=== PATIENT | male | born 1950 | race Caucasian/White ===

== ENCOUNTER → 2019-05-07 | Outpatient (CLI) | payer MEDICARE, MEDICAID ==
[2014-06-09 10:33] VITALS: BP 93/58
[~2019-05-07] MED LIST: ASPI325T8 PO; ATEN-56 PO; ATEN25TA PO; Aspirin PO; CLOP75TA57 PO; Hydrocodone/Acetaminophen PO; MULT-208 PO; PRAV20TA PO; REGADENOSON 0.4 MG/5 ML DISP.SYRIN. IV ONE
--- NOTE | 2019-05-07 13:11 | RAD ---
MR#: [id number] Date of Study: 05/07/2019 Ordering Physician: WANDA MOTTA Referring Physician: IZZY JONES Tech: RT Ventura Esqueda) (N) APPROVED REPORT Test Type: Pharmacological Stress Nurse/Tech: Stacy Khan RN Test Indications: CAD, 2 stents 4 years ago Cardiac History: Family history Medications: See Electronic Medical Record Medical History: See Electronic Medical Record Resting ECG: SR Resting Heart Rate: 68 bpm Resting Blood Pressure: 123/72mmHg Pretest Chest Pain: No chest pain Nurse/Tech Notes S1,S2 and lungs clear to auscultation. Consent: The procedure was explained to the patient in lay terms. Informed consent was witnessed. Micah eout was entered into [employer]. History and Stress Test performed by RT Dheeraj (Gabi) (N) Pharm. Details Pharmacologic stress testing was performed using 0.4mg per 5ml of regadenoson given intravenously ove r 7-10 seconds. Stress Symptoms Dizziness POST EXERCISE Reason for Termination: Infusion complete Target HR: No Max HR: 88 bpm Max Blood Pressure: 118/54mmHg Blood Pressure response to exercise: Normal blood pressure response during stress. Heart Rate response to exercise: WNL Chest Pain: No. Arrhythmia: No. ST Change: No. INTERPRETATION Stress EKG Conclusion: Negative for ischemia Imaging Protocol IMAGE PROTOCOL: Rest Tc-99m/stress Tc-99m 1 day Rest: Stress: Viability: Radiopharm.Tc99m BgkszpkveCo88e Sestamibi Cuyv74lIj 32mCi Duration 15min. 15min. Img Date 05/07/2019 05/07/2019 Inj-Img Prxa10apl. 60min. Rest Admin Site:IV - Right AntecubitalAdministrator:RT Ventura Esqueda)(N) Stress Admin Site: IV - Right AntecubitalAdministrator: RT Dheeraj (Gabi)(N) STRESS DATA End Diast. Vol.84.0mlLVEDV index BSA49.0ml End Syst. Vol.19.0mlLVESV index BSA11.0ml Myocardial Oygo257.0gEject. Oivxpzer05.0% Stress Scores Regional WT0.00Summed WT0.00 Regional WM0.00Summed WM0.00 The rest and stress images show normal perfusion, normal contraction and thickening. LV Perf. Quant 17 Seg. SSS0.00 17 Seg. SRS2.00 17 Seg. SDS0.00 Stress Defect Extent (% LAD)0.00Rest Defect Extent (% LAD)2.50Rev. Defect Extent (% LAD)0.00 Stress Defect Extent (% LCX) 0.00Rest Defect Extent (% LCX)0.00Rev. Defect Extent (% LCX)0.00 Stress Defect Extent (% RCA)0.00Rest Defect Extent (% RCA)0.00Rev. Defect Extent (% RCA)0.00 Stress Defect Extent (% RAMY)0.00Rest Defect Extent (% RAMY)0.90Rev. Defect Extent (% RAMY)0.00 Other Information Quality:Good Risk Assessment: Low Risk Conclusion 1. No evidence of EKG changes with stress testing. 2. Normal perfusion at stress/rest. 3. Low risk study. 4. EF > 60%. Signed by : Garret Mcgill, Electronically Approved : 05/07/2019 13:10:24
== END | disposition home or self-care (01) ==
LOC: NM 09:36
PROVIDERS: ATTEND Internal Medicine Cardiovascular Disease
DX: I25.10 Atherosclerotic heart disease of native coronary artery without angina pectoris (principal); Z95.5 Presence of coronary angioplasty implant and graft
CPT/HCPCS: 78452; 93017; A9500; J2785

== ENCOUNTER → 2019-05-09 | Outpatient (CLI) | payer MEDICARE, MEDICAID ==
[2014-06-09 10:33] VITALS: BP 93/58
[~2019-05-09] MED LIST changes: -REGADENOSON 0.4 MG/5 ML DISP.SYRIN. IV ONE
--- NOTE | 2019-05-09 14:59 | CARD ---
MR#: [id number] Date of Study: 05/09/2019 Ordering Physician: WANDA MOTTA, Referring Physician: WANDA MOTTA Tech: Shirley Peterson RDCS APPROVED REPORT EXAM: Two-dimensional and M-mode echocardiogram with Doppler and color Doppler. Other Information Quality : Good INDICATION Cardiac Disease: CAD 2D DIMENSIONS RVDd2.5 (2.9-3.5cm)Left Atrium(2D)3.0 (1.6-4.0cm) IVSd0.9 (0.7-1.1cm)Aortic Root(2D)2.7 (2.0-3.7cm) LVDd5.1 (3.9-5.9cm)LVOT Diameter2.2 (1.8-2.4cm) PWd0.7 (0.7-1.1cm)LVDs3.4 (2.5-4.0cm) FS (%) 30.0 %SV76.8 ml LVEF(%)60.0 (>50%) Aortic Valve AoV Peak Say.125.9cm/sAoV VTI25.0cm AO Peak GR.6.3mmHgLVOT Peak Say.105.8cm/s AO Mean GR.3mmHgAVA (VMAX)3.15cm2 ROSSANA (VTI)3.28qy6FK P 1/2 Qdfe360no Mitral Valve MV E Fnqbooad29.3cm/sMV DECEL DGNI93hr MV A Naphnluk48.3cm/sE/A Ratio0.8 Tricuspid Valve TR P. Yqlggfuk037jg/sRAP PPKUNBKY7wlXo TR Peak Gr.69tfQyDNHZ42baPw Pulmonary Vein S1 Yoslihwt90.3cm/sD2 Wdgkopsf18.7cm/s LEFT VENTRICLE The left ventricle is normal size. There is normal left ventricular wall thickness. The left ventricu lar systolic function is normal and the ejection fraction is within normal range. The Ejection Fracti on is 55-60%. There is normal LV segmental wall motion. Transmitral Doppler flow pattern is Grade I-a bnormal relaxation pattern. RIGHT VENTRICLE The right ventricle is normal size. The right ventricular systolic function is normal. ATRIA The left atrium size is normal. The right atrium size is normal. The interatrial septum is intact wit h no evidence for an atrial septal defect or patent foramen ovale as noted on 2-D or Doppler imaging. AORTIC VALVE The aortic valve is calcified but opens well. Doppler and Color Flow revealed mild aortic regurgitati on. There is no significant aortic valvular stenosis. MITRAL VALVE The mitral valve is calcified but opens well. There is no evidence of mitral valve prolapse. There is no mitral valve stenosis. Doppler and Color-flow revealed trace to mild mitral regurgitation. TRICUSPID VALVE The tricuspid valve is normal in structure and function. Doppler and Color Flow revealed trace tricus pid regurgitation. The PA pressure was estimated at 28 mmHg. There is no tricuspid valve stenosis. PULMONIC VALVE The pulmonic valve is not well visualized. Doppler and Color Flow revealed mild pulmonic valvular reg urgitation. There is no pulmonic valvular stenosis. GREAT VESSELS The aortic root is normal in size. The ascending aorta is normal in size. The IVC is normal in size a nd collapses >50% with inspiration. PERICARDIAL EFFUSION There is no evidence of significant pericardial effusion. Critical Notification Critical Value: No <Conclusion> The left ventricle is normal size. The left ventricular systolic function is normal and the ejection fraction is within normal range. The Ejection Fraction is 55-60%. There is no significant aortic valvular stenosis. Doppler and Color Flow revealed mild aortic regurgitation. Doppler and Color-flow revealed trace to mild mitral regurgitation. Doppler and Color Flow revealed trace tricuspid regurgitation. The PA pressure was estimated at 28 mmHg. Signed by : Alonso Miller MD Electronically Approved : 05/09/2019 14:58:29
== END | disposition home or self-care (01) ==
LOC: ECHO 09:04
PROVIDERS: ATTEND Internal Medicine Cardiovascular Disease
DX: I08.8 Other rheumatic multiple valve diseases (principal); I25.10 Atherosclerotic heart disease of native coronary artery without angina pectoris
CPT/HCPCS: 93306

== ENCOUNTER → 2020-03-10 | Outpatient (CLI) | payer MEDICARE, MEDICAID ==
[2014-06-09 10:33] VITALS: BP 93/58
[2020-03-10 10:54] LABS: CHOLESTEROL/HDL RATIO 1.6
== END | disposition home or self-care (01) ==
LOC: LAB 10:08
PROVIDERS: ATTEND Internal Medicine Cardiovascular Disease
DX: I25.10 Atherosclerotic heart disease of native coronary artery without angina pectoris (principal)
CPT/HCPCS: 36415; 80061

== ENCOUNTER → 2020-09-02 | Outpatient (CLI) | payer MEDICARE, MEDICAID ==
[2014-06-09 10:33] VITALS: BP 93/58
--- NOTE | 2020-09-02 16:05 | CARD ---
MR#: [id number] Date of Study: 09/02/2020 Ordering Physician: WANDA JACK, Referring Physician: WANDA JACK, Tech: Kandice Khan PATRICK APPROVED REPORT EXAM: Two-dimensional and M-mode echocardiogram with Doppler and color Doppler. Other Information Quality : GoodHR: 66bpm Rhythm : NSR INDICATION CAD, stents. 2D DIMENSIONS RVDd3.5 (2.9-3.5cm)IVSd1.0 (0.7-1.1cm) Aortic Root(2D)3.5 (2.0-3.7cm)LVDd3.9 (3.9-5.9cm) LVOT Diameter2.0 (1.8-2.4cm)PWd0.9 (0.7-1.1cm) LVDs2.6 (2.5-4.0cm)FS (%) 31.7 % SV39.2 mlLVEF(%)60.4 (>50%) Aortic Valve AoV Peak Say.128.4cm/Adriana Peak GR.6.6mmHg LVOT Peak Say.105.4cm/sAVA (VMAX)2.70cm2 AI P 1/2 Bhkb737qp Mitral Valve MV E Ojrrxjex04.5cm/sMV DECEL FABT932za MV A Skysjecl08.2cm/sE/A Ratio0.8 MV A Tdipwjbr546ql Tricuspid Valve TR P. Ydoqzgto966fw/sRAP JJYJECRW9itTr TR Peak Gr.35koJrNZDL65mjGb Pulmonary Vein S1 Jnxxanve37.5cm/sD2 Sdnrlbzp97.3cm/s PVa ssdtuamr96ifiu LEFT VENTRICLE The left ventricle is normal size. There is normal left ventricular wall thickness. Left ventricle sy stolic function is normal. The Ejection Fraction is 55-60%. There is normal LV segmental wall motion. Transmitral Doppler flow pattern is Grade I-abnormal relaxation pattern. RIGHT VENTRICLE The right ventricle is normal size. The right ventricular systolic function is normal. ATRIA The left atrium size is normal. The right atrium size is normal. The interatrial septum is intact wit h no evidence for an atrial septal defect or patent foramen ovale as noted on 2-D or Doppler imaging. AORTIC VALVE The aortic valve is moderately calcified. Doppler and Color Flow revealed mild to moderate aortic reg urgitation. There is no significant aortic valvular stenosis. MITRAL VALVE The mitral valve is normal in structure and function. There is no mitral valve stenosis. Doppler and Color-flow revealed trace mitral regurgitation. TRICUSPID VALVE The tricuspid valve is normal in structure and function. Doppler and Color Flow revealed trace tricus pid regurgitation. The PA pressure was estimated at 20 mmHg. PULMONIC VALVE The pulmonary valve is normal in structure and function. Doppler and Color Flow revealed trace pulmon ic valvular regurgitation. GREAT VESSELS The aortic root is normal in size. The ascending aorta is normal in size. PERICARDIAL EFFUSION There is no evidence of significant pericardial effusion. Critical Notification Critical Value: No <Conclusion> Left ventricle systolic function is normal. The Ejection Fraction is 55-60%. There is normal LV segmental wall motion. Transmitral Doppler flow pattern is Grade I-abnormal relaxation pattern. Mild to moderate aortic regurgitation. Trace mitral regurgitation. Trace tricuspid regurgitation. The PA pressure was estimated at 20 mmHg. There is no evidence of significant pericardial effusion. Signed by : Wanda Jack, Electronically Approved : 09/02/2020 16:05:04
--- NOTE | 2020-09-02 17:17 | RAD ---
MR#: [id number] Date of Study: 09/02/2020 Ordering Physician: WANDA MOTTA, Referring Physician: WANDA MOTTA, Tech: Jagdish Kaye MBA, RDMS, RVT, RDCS, RTR APPROVED REPORT Patient Location: OUT-PATIENT Laterality:Bilateral Indications Bruit CAD Doppler Spectral Velocity Analysis Right Left pCCA 107/26 cm/spCCA 116/23 cm/s mCCA 101/24 cm/smCCA 109/24 cm/s dCCA 117/27 cm/sdCCA 108/22 cm/s Bulb 99/24 cm/sBulb 123/27 cm/s ECA 100/ cm/sECA 102/ cm/s pICA 68/21 cm/spICA 79/27 cm/s Yolanda 84/28 cm/smICA 69/22 cm/s dICA 69/23 cm/sdICA 70/27 cm/s Vert. 76/ cm/sVert. 50/ cm/s Subcl. 83/ cm/sSubcl. 111/ cm/s ICA/CCA 0.72ICA/CCA 0.68 Findings Grayscale images of the bilateral common carotid, internal and external carotid vessels demonstrates mild to moderate intimal hyperplasia with mild diffuse atherosclerotic plaque The bilateral internal carotid vessels demonstrate overall 0 to less than 50% stenosis based on veloc ity criteria and spectral waveforms. Bilateral external carotid arteries are grossly unremarkable with overall 0 to less than 50% stenosis based on velocity criteria. Bilateral vertebral velocities are antegrade with normal velocities. Bilateral ICA to CCA ratios are within normal limits Critical Notification Critical Value: No <Conclusion> No significant carotid arterial disease bilaterally Signed by : Garret Mcgill, Electronically Approved : 09/02/2020 17:16:56
== END ==
LOC: US 13:59
PROVIDERS: ATTEND Internal Medicine Cardiovascular Disease
DX: I35.1 Nonrheumatic aortic (valve) insufficiency (principal); I65.23 Occlusion and stenosis of bilateral carotid arteries; I25.10 Atherosclerotic heart disease of native coronary artery without angina pectoris
CPT/HCPCS: 93306; 93880

== ENCOUNTER 2021-03-27 08:38 | Outpatient (CLI) | payer MEDICARE, MEDICAID ==
[~2021-03-27] VITALS: Ht 160 cm; Wt 59.0 kg
[2021-03-27] VITALS (12 sets, daily range): BP systolic 127–147; BP diastolic 68–85
[2021-03-27] MEDS ORDERED: EVOL140P3 SQ (09:02)
[2021-03-27 09:09] LABS: HEMATOCRIT 41.6 % (39.0-53.0); HEMOGLOBIN 13.9 g/dL (13.0-17.5); RED BLOOD COUNT 4.51 x10^6/uL (4.30-5.70); RED CELL DISTRIBUTION WIDTH 14.8 % (11.5-14.5); WHITE BLOOD COUNT 6.2 x10^3/uL (4.0-11.0)
[2021-03-27 09:21] LABS: CALCIUM 8.8 mg/dL (8.5-10.1); CREATININE 0.9 mg/dL (0.7-1.3); GFR 82.7; POTASSIUM 4.2 mmol/L (3.5-5.1)
[2021-03-27] MEDS ORDERED: IODIXANOL 320 MG/ML 100 ML VIAL. ONE ×2 (09:35→10:46)
[2021-03-27] MEDS ORDERED: HEPARIN for IV BOLUS 10,000 UNIT/10 ML VIAL. ONE (09:37)
[2021-03-27] MEDS ORDERED: MIDAZOLAM HCL/PF 2 MG/2 ML VIAL. ONE (09:38)
[2021-03-27] MEDS ORDERED: NITROGLYCERIN 200 MCG/2 ML SYRINGE FOR CATH/VASC LAB. ONE (09:38)
[2021-03-27] MEDS ORDERED: fentaNYL PF VIAL 100 MCG/2 ML VIAL ONE (09:38)
[2021-03-27] MEDS ORDERED: VERAPAMIL 5 MG/2 ML VIAL. ONE (09:38)
[2021-03-27] MEDS ORDERED: IODIXANOL 320 MG/ML 100 ML VIAL. IART ONE (09:45)
[2021-03-27] MEDS ORDERED: HEPARIN for IV BOLUS 10,000 UNIT/10 ML VIAL. IART ONE (09:45)
[2021-03-27] MEDS ORDERED: CHLOROPROCAINE 3% MPF 20 ML VIAL. IJ ONE (09:45)
[2021-03-27] MEDS ORDERED: fentaNYL PF VIAL 100 MCG/2 ML VIAL IV ONE (09:45)
[2021-03-27] MEDS ORDERED: VERAPAMIL 5 MG/2 ML VIAL. IART ONE (09:45)
[2021-03-27] MEDS ORDERED: MIDAZOLAM HCL/PF 2 MG/2 ML VIAL. IV ONE (09:45)
[2021-03-27] MEDS ORDERED: NITROGLYCERIN 200 MCG/2 ML SYRINGE FOR CATH/VASC LAB. IART ONE (09:45)
--- NOTE | 2021-03-27 09:52 | PDOC ---
MODERATE SEDATION ASSESSMENT RISKS/ALTERNATIVES Risks/Alternatives Risks and alternatives of this type of sedation and procedure discussed with: RISK/ALTERNATIVES: Patient H & P ON CHART H & P H & P on chart and reviewed for co-morbid conditions and appropriate labs. H&P ON CHART: Yes STATUS PREG STATUS ASSESSED: N/A MEDS/ALLERGIES REVIEWED Meds/Allergies Reviewed Medications and Allergies including time and route of recently administered narcotics and sedatives. MEDS/ALLERGIES REVIEWED: Yes ASA RATING ASA RATING: II AIRWAY ASSESSMENT Airway Assessment Airway patency, oral function limitations, presence of caps, crowns, dentures, partials, and ability to extend neck assessed. AIRWAY ASSESSMENT: Yes MALLAMPATI SCORE MALLAMPATI SCORE: II PRE-SEDATION ASSESSMENT PRE-SEDATION ASSESSMENT: Yes WANDA MOTTA MD Mar 27, 2021 09:52
[2021-03-27] MEDS ORDERED: FAMOTIDINE 20 MG/2 ML VIAL ONE (09:58)
[2021-03-27] MEDS ORDERED: diphenhydrAMINE 50 MG/ML VIAL ONE (09:58)
[2021-03-27] MEDS ORDERED: methylPREDNISolone SOD SUCC PF 125 MG/2 ML VIAL. ONE (09:58)
[2021-03-27] MEDS ORDERED: diphenhydrAMINE 50 MG/ML VIAL IVP ONE (10:00)
[2021-03-27] MEDS ORDERED: methylPREDNISolone SOD SUCC PF 125 MG/2 ML VIAL. IV ONE (10:00)
[2021-03-27] MEDS ORDERED: FAMOTIDINE 20 MG/2 ML VIAL IVP ONE (10:00)
[2021-03-27] MEDS ORDERED: BIVALIRUDIN 250 MG VIAL. IV ONE ×2 (10:20→10:30)
[2021-03-27] MEDS ORDERED: CLOPIDOGREL BISULFATE 75 MG TABLET ONE (10:53)
[2021-03-27] MEDS ORDERED: ASPIRIN 325 MG TABLET ONE (10:53)
[2021-03-27] MEDS ORDERED: ASPIRIN 325 MG TABLET PO ONE (11:00)
[2021-03-27] MEDS ORDERED: CLOPIDOGREL BISULFATE 75 MG TABLET PO ONE (11:00)
[2021-03-27] MEDS ORDERED: CLOP75TA PO (12:12)
[2021-03-27] MEDS ORDERED: ASPI325T8 PO (12:12)
--- NOTE | 2021-03-27 12:13 | CARD ---
MR#: [id number] Date of Study: 03/27/2021 Ordering Physician: WANDA JACK, Referring Physician: WANDA JCAK, Tech: RT Cierra(R)() APPROVED REPORT Technologist: RT Cierra(R)() Nurse: Brittny Collazo RN Procedure(s) performed: 1. Left heart catheterization, selective coronary angiography via right mederos sradial approach 2. Successful PCI/drug-eluting stent placement to the right coronary artery 3. Instantaneous wave free ratio (IFR) measurement to stenosis in the left anterior descending and l eft circumflex arteries fl time: 18.9 mins dose: 46 gycm2 contrast: 161 ml moderate sedation: 54 MINS INDICATION The indication(s) include : unstable angina . [facility] Clinical Frailty Scale [facility] Clinical Frailty Scale: Moderately Frail Heart Failure Heart Failure: No CASE TECHNIQUE IV conscious sedation was used throughout procedure with appropriate monitoring and was performed in the presence of a registered nurse who was an independent trained observer other than the physician p erforming the procedure. During this case, Fluoroscopy and low osmolar contrast were used for imaging . Specimen(s) Removed: No Estimated Blood loss: 15 cc's. PROCEDURE NARRATIVE After explaining the risks, benefits and alternative options, informed consent was obtained from nighat ent. Patient was brought to the cardiac [employer] and right wrist was prepped and draped in the usual fashion after confirming a positive modified Gustavo's test. Arterial access was obtained in the rig t radial artery and a 6 Maldivian sheath was inserted. 6 Mal[place]ian Josemanuel catheter was used to perform pan ective angiography of the left and right coronary arteries. LVEDP and transaortic gradients were celina sured. Since patient was found to have angiographically borderline significant stenosis involving th e left anterior descending and left circumflex arteries a decision was made to perform physiologic as sessment using instantaneous wave free ratio (IFR) measurement. The left main coronary artery was en gaged with a 6 [place]ian AL 0.75 guide catheter and the in-stent restenosis in the mid segment of the le ft anterior descending artery was crossed with a [employer] pressure wire. iFR measurement was made there was insignificant at 0.96. Subsequently, the same pressure wire was used to cross the joellen nosis in the mid segment of the left circumflex artery and IFR measurement was made that was insignif icant at 1.0. FINDINGS 1. Hemodynamics: Left ventricular end-diastolic pressure of 24 mmHg. No pullback gradient across th e aortic valve. 2. Coronary angiography: a. The left main coronary artery arose from the left sinus of Valsalva, gave rise to the left anteri or descending and left circumflex arteries and did not show any significant stenosis. b. The left anterior descending artery showed 50% in-stent restenosis in the mid segment that was ph ysiologically insignificant based on IFR measurement of 0.96. c. The left circumflex artery showed 50% stenosis in the midsegment that was physiologically insigni ficant based on IFR measurement of 1.0. d. The right coronary artery was a large and dominant vessel arising from the right sinus of Valsalv a that showed long 90% stenosis in the proximal to mid segment. INTERVENTION The right coronary artery was engaged with a 6 [place]ian AL 0.75 guide catheter. The stenosis in the pr oximal to mid segment was crossed with a 0.014 inch [employer] guidewire. This was predilated wi th a 3.0 x 15 mm Euphora balloon following which this was successfully treated with a 3.0 x 38 mm res olute [place] drug-eluting stent. Follow-up angiography showed resolution of the stenosis to 0% with TI DC-3 distal flow. Patient tolerated procedure well. Hemostasis was achieved using TR band. There w ere no immediate complications. Conclusion 1. Three-vessel coronary artery disease. 90% stenosis involving the proximal to mid segment of righ t coronary artery. 50% in-stent restenosis in the mid segment of the left anterior descending artery and 50% stenosis in the mid segment of the left circumflex artery, both of which were physiologicall y insignificant based on IFR measurements. 2. Successful PCI/drug-eluting stent placement to the right coronary artery. Recommendations 1. Aspirin 325 mg daily for 1 month followed by 81 mg daily 2. Plavix 75 mg daily 3. Cardiovascular risk factor modification Signed by : Wanda Jack, Electronically Approved : 03/27/2021 12:12:29
[2021-03-27] MEDS ORDERED: IV 1/2 NORMAL SALINE 1,000 ML IV SCH (12:15)
[2021-03-27] MEDS ORDERED: NITROGLYCERIN SUBLINGUAL 0.4 MG BOTTLE OF 25. SL PRN (12:15)
[2021-03-27] MEDS ORDERED: ACETAMINOPHEN 325 MG TABLET. PO PRN (12:15)
--- NOTE | 2021-03-27 13:20 | NUR ---
Discharge Note: GENA NEAL Discharge instructions and discharge home medications reviewed with Patient and a copy given. All questions have been answered and understanding verbalized. The following instructions and handouts were given: Moderate sedation and radial site care. Discontinued left peripheral IV, band aid applied. Right radial site redressed and arm board reapplied, no complications. Patient discharged to home with his brother.
[2021-03-28] MEDS ORDERED: CLOPIDOGREL BISULFATE 75 MG TABLET PO SCH (08:00)
[2021-03-28] MEDS ORDERED: ASPIRIN ENTERIC COATED 325 MG TABLET.DR. PO SCH (08:00)
== END 2021-03-27 13:50 | disposition home or self-care (01) ==
LOC: CCL 08:38
PROVIDERS: ATTEND Internal Medicine Cardiovascular Disease
DX: I25.110 Atherosclerotic heart disease of native coronary artery with unstable angina pectoris (principal); I10 Essential (primary) hypertension; E78.00 Pure hypercholesterolemia, unspecified; Z79.82 Long term (current) use of aspirin; Z79.899 Other long term (current) drug therapy; Z98.890 Other specified postprocedural states; Z88.8 Allergy status to other drugs, medicaments and biological substances
CPT/HCPCS: 36415; 80048; 85027; 93458; 93571; 93572; 99152; 99153; C1725; C1769; C1874; C1887; C1894; C9600; J0583; J1200; J1644; J2250; J2400; J2930; J3010; J3490; Q9967; 92928

== ENCOUNTER → 2021-04-15 | Outpatient (CLI) | payer MEDICARE, MEDICAID ==
[2021-03-27 13:15] VITALS: BP 138/68
[~2021-04-15] MED LIST changes: +CLOP75TA PO; +EVOL140P3 SQ
--- NOTE | 2021-04-15 17:43 | RAD ---
EXAMINATION: US DPLX ARTR EXTREM LOWER BILAT INDICATION: 71 years, Male, bilateral leg pain. COMPARISON: None TECHNIQUE: Grayscale, color and spectral Doppler evaluation of the bilateral lower extremity arterial system(s) was performed. FINDINGS: RIGHT PEAK SYSTOLIC VELOCITIES: COMMON FEMORAL ARTERY: 95 cm/s WAVEFORMS: Triphasic. DEEP FEMORAL ARTERY: 61 cm/s WAVEFORMS: Biphasic PROXIMAL SUPERFICIAL FEMORAL ARTERY: 114 cm/s WAVEFORMS: Triphasic MID SUPERFICIAL FEMORAL ARTERY: 115 cm/s WAVEFORMS: Triphasic DISTAL SUPERFICIAL FEMORAL ARTERY: 76 cm/s WAVEFORMS: Triphasic POPLITEAL ARTERY: 67 cm/s WAVEFORMS: Triphasic DORSALIS PEDIS ARTERY: 86 cm/s WAVEFORMS: Triphasic PROXIMAL POSTERIOR TIBIAL ARTERY: 75 cm/s WAVEFORMS: Triphasic DISTAL POSTERIOR TIBIAL ARTERY: 100 cm/s WAVEFORMS: Triphasic ANTERIOR TIBIAL ARTERY: 84 cm/s WAVEFORMS: Triphasic PERONEAL ARTERY: 49 cm/s WAVEFORMS: Triphasic LEFT PEAK SYSTOLIC VELOCITIES: COMMON FEMORAL ARTERY: 86 cm/s WAVEFORMS: Triphasic DEEP FEMORAL ARTERY: 52 cm/s WAVEFORMS: Triphasic PROXIMAL SUPERFICIAL FEMORAL ARTERY: 104 cm/s WAVEFORMS: Triphasic MID SUPERFICIAL FEMORAL ARTERY: 117 cm/s WAVEFORMS: Triphasic DISTAL SUPERFICIAL FEMORAL ARTERY: 110 cm/s WAVEFORMS: Triphasic POPLITEAL ARTERY: 84 cm/s WAVEFORMS: Triphasic DORSALIS PEDIS ARTERY: 70 cm/s WAVEFORMS: Triphasic PROXIMAL POSTERIOR TIBIAL ARTERY: 83 cm/s WAVEFORMS: Triphasic DISTAL POSTERIOR TIBIAL ARTERY: 107 cm/s WAVEFORMS: Triphasic ANTERIOR TIBIAL ARTERY: 69 cm/s WAVEFORMS: Triphasic PERONEAL ARTERY: 57 cm/s WAVEFORMS: Triphasic IMPRESSION: Patent bilateral lower extremity arteries, without hemodynamically significant luminal stenosis. Electronically signed by: Aki Grace MD (04/15/2021 5:41 PM) [id number]
== END ==
LOC: US 13:43
PROVIDERS: ATTEND Internal Medicine Cardiovascular Disease
DX: I25.10 Atherosclerotic heart disease of native coronary artery without angina pectoris (principal)
CPT/HCPCS: 93925

== ENCOUNTER → 2021-11-30 | Outpatient (CLI) | payer MEDICARE, MEDICAID ==
[2021-03-27 13:15] VITALS: BP 138/68
--- NOTE | 2021-12-01 09:27 | CARD ---
MR#: [id number] Date of Study: 11/30/2021 Ordering Physician: WANDA MOTTA, Referring Physician: WANDA MOTTA Tech: Fadumo Denton [facility] APPROVED REPORT EXAM: Two-dimensional and M-mode echocardiogram with Doppler and color Doppler. Other Information Quality : AverageHR: 80bpm Rhythm : NSR INDICATION Cardiac Disease: CAD RISK FACTORS Hypertension Hyperlipidemia 2D DIMENSIONS RVDd3.8 (2.9-3.5cm)Left Atrium(2D)2.9 (1.6-4.0cm) IVSd1.1 (0.7-1.1cm)Aortic Root(2D)3.5 (2.0-3.7cm) LVDd4.0 (3.9-5.9cm)LVOT Diameter2.2 (1.8-2.4cm) PWd1.1 (0.7-1.1cm)LVDs2.4 (2.5-4.0cm) FS (%) 39.3 %SV47.9 ml LVEF(%)70.5 (>50%) Aortic Valve AoV Peak Say.150.0cm/sAoV VTI28.3cm AO Peak GR.9.0mmHgLVOT Peak Say.106.7cm/s AO Mean GR.5mmHgAVA (VMAX)2.67cm2 AI P 1/2 Wrxa476lz Mitral Valve MV E Ipvnkrff98.6cm/sMV DECEL GMEL848od MV A Kicilmeb01.5cm/sE/A Ratio0.8 Pulmonary Valve PV Peak Qfoklvds30.1cm/s Tricuspid Valve TR P. Vtvagdfl156sh/sTR Peak Gr.28mmHg LEFT VENTRICLE The left ventricle is normal size. There is borderline concentric left ventricular hypertrophy. The l eft ventricular systolic function is normal and the ejection fraction is within normal range. Estimat ed ejection fraction 55%. There is normal LV segmental wall motion. Transmitral Doppler flow pattern is Grade I-abnormal relaxation pattern. RIGHT VENTRICLE The right ventricle is normal size. There is normal right ventricular wall thickness. The right ventr icular systolic function is normal. ATRIA The left atrium size is normal. The right atrium size is normal. The interatrial septum is intact wit h no evidence for an atrial septal defect or patent foramen ovale as noted on 2-D or Doppler imaging. AORTIC VALVE The aortic valve is normal in structure and function. Doppler and Color Flow revealed mild to moderat e aortic regurgitation. There is no significant aortic valvular stenosis. MITRAL VALVE The mitral valve is normal in structure and function. There is no evidence of mitral valve prolapse. There is no mitral valve stenosis. Doppler and Color-flow revealed trace to mild mitral regurgitation . TRICUSPID VALVE The tricuspid valve is normal in structure and function. Doppler and Color Flow revealed trace tricus pid regurgitation. Estimated PAP 30 mmHg. There is no tricuspid valve stenosis. PULMONIC VALVE Doppler and Color Flow revealed trace to mild pulmonic valvular regurgitation. There is no pulmonic v alvular stenosis. GREAT VESSELS The aortic root is normal in size. The ascending aorta is normal in size. The IVC is normal in size a nd collapses >50% with inspiration. PERICARDIAL EFFUSION There is no evidence of significant pericardial effusion. Critical Notification Critical Value: No <Conclusion> The left ventricular systolic function is normal and the ejection fraction is within normal range. E stimated ejection fraction 55%. There is normal LV segmental wall motion. Doppler and Color Flow revealed mild to moderate aortic regurgitation. Signed by : Garret Mcgill, Electronically Approved : 12/01/2021 09:27:11
== END ==
LOC: ECHO 08:00
PROVIDERS: ATTEND Internal Medicine Cardiovascular Disease
DX: I08.8 Other rheumatic multiple valve diseases (principal); I25.10 Atherosclerotic heart disease of native coronary artery without angina pectoris
CPT/HCPCS: 93306; C8929